=== PATIENT | female | born 1975 | race Caucasian/White ===

== ENCOUNTER 2024-01-18 11:22 | Emergency (ER) | payer MEDICAID ==
[~2024-01-18] VITALS: Ht 154.9 cm; Wt 62.0 kg
[2024-01-18 11:25] VITALS: BP 140/92; TEMP 97.9; O2SAT 99
[2024-01-18 11:26] VITALS: PULSE 95; RESP 18; O2SAT 99
[2024-01-18 12:23] LABS: BASOPHILS % 0.8 % (0.0-2.0); CHLORIDE 105 mEq/L (98-107); EOSINOPHILS % 1.3 % (0.0-5.0); HEMATOCRIT. 46.4 % (36.0-48.0); HEMOGLOBIN. 15.1 g/dL (12.0-16.0); LYMPHOCYTES % 26.9 % (20.0-50.0); MEAN CORPUSCULAR HEMOGLOBIN 28.7 pg (28.0-32.0); MEAN CORPUSCULAR HGB CONC 32.5 g/dL (31.0-37.0); MEAN CORPUSCULAR VOLUME 88.2 fL (81.0-99.0); MEAN PLATELET VOLUME 8.4 fl (7.4-10.4); MONOCYTES % 9.2 % (2.0-8.0); NEUTROPHILS % 61.8 % (40.0-76.0); PLATELET 282 x1000/uL (130-400); POTASSIUM 4.2 mEq/L (3.5-5.1); RED BLOOD CELL COUNT 5.25 mill/uL (4.2-5.4); RED CELL DISTRIBUTION WIDTH 14.1 % (11.6-14.6); SODIUM 138 mEq/L (136-145); WHITE BLOOD COUNT 7.4 x1000/uL (4.5-11.0)
[2024-01-18 12:24] LABS: CALCIUM 9.9 mg/dL (8.7-10.4); CARBON DIOXIDE 24 mEq/L (21-32)
[2024-01-18 12:29] LABS: CREATININE 0.8 mg/dL (0.6-1.0); GLUCOSE 92 mg/dL (70-105); UREA NITROGEN BLOOD 10 mg/dL (9-23)
[2024-01-18 12:31] LABS: ALANINE AMINOTRANSFERASE 17 IU/L (10-49); ALBUMIN 4.5 g/dL (3.2-4.8); ASPARTATE AMINOTRANSFERASE 24 IU/L (<34); BILIRUBIN DIRECT 0.1 mg/dL (<=3.0); BILIRUBIN TOTAL 0.6 mg/dL (0.1-1.0); PROTEIN TOTAL 7.6 g/dL (6.0-8.3)
[2024-01-18 12:40] LABS: HCG SCREEN NEGATIVE
[2024-01-18 13:12] LABS: CLARITY URINE CLEAR (CLEAR); COLOR URINE YELLOW (YELLOW); GLUCOSE URINE NEGATIVE (NEGATIVE); KETONES URINE NEGATIVE (NEGATIVE); LEUKOCYTE ESTERASE URINE NEGATIVE (NEGATIVE); NITRITE URINE NEGATIVE (NEGATIVE); OCCULT BLOOD URINE NEGATIVE (NEGATIVE); PROTEIN URINE NEGATIVE (NEGATIVE); SPECIFIC GRAVITY URINE 1.016 (1.005-1.030); UROBILINOGEN URINE 0.2 E.U./dL (0.2-1.0)
[2024-01-18] MEDS: ACETAMINOPHEN 325MG TABLET PO NR (13:53)
== END 2024-01-18 15:03 | disposition home or self-care (01) ==
LOC: ER 11:22
DX: B34.9 Viral infection, unspecified (principal)
CPT/HCPCS: 36415; 74176; 80048; 80076; 81003; 84703; 85025; 99284

== ENCOUNTER 2024-12-05 22:34 | Emergency (ER) | payer MEDICAID ==
[~2024-12-05] VITALS: Ht 160 cm; Wt 74.6 kg
[2024-12-05 22:41] VITALS: O2SAT 99
[2024-12-05] MEDS: METOCLOPRAMIDE HCL 10MG TABLET PO ONE (23:12)
[2024-12-05] MEDS: KETOROLAC 30MG/ML VIAL IM ONE (23:12)
[2024-12-05] MEDS: DIPHENHYDRAMINE 25MG CAPSULE PO ONE (23:12)
[2024-12-05 23:54] VITALS: BP 141/93; PULSE 77; RESP 18; TEMP 36.5; O2SAT 100
== END 2024-12-05 23:59 | disposition home or self-care (01) ==
LOC: ER 22:34
DX: G43.909 Migraine, unspecified, not intractable, without status migrainosus (principal); E03.9 Hypothyroidism, unspecified
CPT/HCPCS: 99283; 96372; J1885; Q0163; J8597